=== PATIENT | male | born 1940 | race Caucasian/White ===

== ENCOUNTER 2020-11-18 07:43 | Outpatient (CLI) | payer MEDICARE, SELFPAY ==
--- NOTE | ~2020-11-18 | CT_ITS ---
EXAMINATION: CT brain wo/w con EXAM DATE: 11/18/2020 08:23 INDICATION: R26.9 - Unspecified abnormalities of gait and mobility. TECHNIQUE: Spiral CT of the head was performed without contrast. Axial, coronal and sagittal images were reviewed. Patient was then injected with 100 cc Omnipaque 350 intravenous contrast and reimaged. Postcontrast axial, coronal, sagittal reformatted images reviewed. The dose-length product (DLP) fo r this examination was 1210.67 mGy-cm. The exposure was tailored according to patient size, and iter ative reconstruction (ASIR) was used as additional dose reduction technique. There is no prior study for comparison. 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 There is small old left cerebellar infa rction. There is no acute intraparenchymal hemorrhage. No evidence of intraparenchymal brain mass [place]. No evidence of acute infarction. Please note that initial head CT has limited sensitivity for small or acute infarctions. There is mild periventricular and subcortical hypodensity, nonspecific b ut probably related to small vessel ischemic disease. There is mild prominence of the sulci and gray tricles related to cerebral atrophy. There is intracranial carotid arteriosclerosis. There are no extra-axial collections. There is no mass effect or midline shift. Patient has had bilateral ocular lens surgery. Soft tissue is unremarkable. Mild to moderate right maxillary and bilateral ethmoid mucoperiosteal thickening. There are no areas of abnormal enhancement on the postcontrast images. IMPRESSION: 1. 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 2. Chronic age related findings. Reviewed, dictated and finalized at location B.
[2020-11-18 08:10] LABS: Estimated Glomerular Filt Rate 37
== END 2020-11-18 07:44 | disposition home or self-care (01) ==
LOC: ANHIMG 07:50
PROVIDERS: PCP Internal Medicine; Visit Provider Psychiatry & Neurology Neurology
DX: R26.9 Unspecified abnormalities of gait and mobility (principal); R93.0 Abnormal findings on diagnostic imaging of skull and head, not elsewhere classified
CPT/HCPCS: 70470; Q9967

== ENCOUNTER 2021-03-31 13:36 | Outpatient (CLI) | payer MEDICARE, SELFPAY ==
--- NOTE | ~2021-03-31 | CT_ITS ---
EXAMINATION: CT abdomen pelvis wo con EXAM DATE: 03/31/2021 14:20 INDICATION: R10.9 - Unspecified abdominal pain. Weight loss. Low back pain. TECHNIQUE: Spiral CT of the abdomen and pelvis was performed without contrast. Axial, coronal and s agittal images of the abdomen and pelvis were reviewed. The dose-length product (DLP) for this exami nation was 217.89 mGy-cm. The exposure was tailored according to patient size (auto mA exposure cont rol), and iterative reconstruction (ASIR) was used as additional dose reduction technique. There is no prior study for comparison. FINDINGS: Right liver dome granuloma. Spleen, pancreas are unremarkable. There are bilateral adrenal adenomas, largest on the left at 3.5 cm. Gallbladder is unremarkable. No biliary obstruction. Ther e is no nephrolithiasis or hydronephrosis. There is no exophytic right renal cyst measuring 4 cm. Th ere is moderate prostatomegaly. The bladder is unremarkable. There is no retroperitoneal or pelvic lymphadenopathy. There is extensive scattered arterial sclerotic disease. There are no findings to suggest appendicitis. There is mild scattered colonic diverticulosis. There is no adjacent inflammatory change to suggest diverticulitis. The stomach and small bowel are unrema rkable. There is expected amount of colonic stool. No free intraperitoneal gas. The heart is nor mal in size. There are no pericardial or pleural effusions. There is moderate emphysema and hyperin flation. There is severe disc disease L-1-2 and L5-S1. There is severe central canal stenosis L4-5. T here are no osteoblastic or osteolytic lesions identified. IMPRESSION: 1. L4-5 severe central canal stenosis. 2. Adrenal adenomas. 3. Mild colonic diverticulosis. 4. Moderate emphysema and hyperinflation. Reviewed, dictated and finalized at location A. [employer] REPRESENT[employer]IVE
== END 2021-03-31 13:37 | disposition home or self-care (01) ==
LOC: ANHIMG 13:37
PROVIDERS: PCP Internal Medicine; Visit Provider Psychiatry & Neurology Neurology
DX: R10.9 Unspecified abdominal pain (principal); M47.817 Spondylosis without myelopathy or radiculopathy, lumbosacral region; M48.07 Spinal stenosis, lumbosacral region; D35.00 Benign neoplasm of unspecified adrenal gland; K57.30 Diverticulosis of large intestine without perforation or abscess without bleeding; J43.9 Emphysema, unspecified
CPT/HCPCS: 74176